=== PATIENT | female | born 1980 | race African-American/Black ===

== ENCOUNTER 2016-10-04 21:54 | Emergency (ER) | payer OTHER ==
[2016-10-04 22:05] VITALS: BP 146/78
[2016-10-04] MEDS ORDERED: DECADRON IM ONE (23:05)
--- NOTE | 2016-10-04 23:05 | PROVIDER DOCUMENTATION ---
[facility] General - General Chief Complaint: Flu Symptoms Stated Complaint: ZHU, FLU SX Time Seen by Provider: 10/04/16 22:51 Source: patient Allergies/Adverse Reactions: Patient Allergies Allergy/AdvReac Type Severity Reaction Status Date / Time No Known Allergies Allergy Verified 10/04/16 22:07 Home Medications: Home Medication List Medication Instructions Recorded Confirmed Last Taken Type Dexamethasone [Decadron] 4 mg PO BID #12 tablet 10/04/16 Unknown Rx - History of Present Illness-[facility] General Nature of Presenting Problem: 36 y/o AAF c/o muscle aches, fevers and fatigue over the past 24 hours. States fever up to 103 F before coming in. No pre-arrival treatment. Denies cough or sore throat. denies abdominal pain, n/v/d. Review of Systems - Adult - REVIEW OF SYSTEMS - ADULT Constitutional: reports: no symptoms reported. denies: chills, fever, fatique Eyes: reports: no symptoms reported. denies: blurred vision, double vision, eye pain Ears, Nose, Mouth & Throat: reports: no symptoms reported. denies: ear pain, nose pain, throat pain Cardiovascular: reports: no symptoms reported. denies: chest pain, irregular heart rate, palpitations Respiratory: reports: no symptoms reported. denies: cough, shortness of breath , wheezing Gastrointestinal: reports: no symptoms reported. denies: abdominal pain, diarrhea, nausea, vomiting Genitourinary: reports: no symptoms reported. denies: dysuria, discharge, frequency, incontinence Musculoskeletal: reports: no symptoms reported. denies: bone pain, back pain, muscle aches Integumentary: reports: no symptoms reported. denies: rash Neurological: reports: no symptoms reported. denies: ataxia, dizziness/vertigo , headache/migraines Psychiatric: reports: no symptoms reported Endocrine: reports: no symptoms reported Hematologic/Lymphatic: reports: no symptoms reported Allergic/Immunologic: reports: no symptoms reported All Other Systems: Reviewed and Negative Past History - Adult - PAST MEDICAL HISTORY-ADULT Review of Records: reports: Old Records Reviewed, Nursing Assessment Review, Medications Reviewed, Social history reviewed & non-contributory. Major Childhood Illnesses: reports: denies history Cardiovascular: reports: denies history Respiratory: reports: sleep apnea Gastrointestinal: reports: denies history Obstetrical/Gynecological: reports: denies history Genitourinary: reports: denies history Musculoskeletal: reports: denies history Neurological: reports: Seizures/Epilepsy Endocrine/Immune: reports: denies history Other Conditions: reports: denies history - PRIOR SURGERIES/PROCEDURES Surgical/Procedure History: reports: cholecystectomy, - PRIOR HOSPITALIZATIONS Prior Hospitalizations: reports: none - IMMUNIZATION STATUS Childhood Immunizations: See Nurse Assessment Flu Vaccine: See Nurse Assessment - FAMILY HISTORY Family History: reviewed, not pertinent Physical Exam- EENT - Physical Exam EENT Initial Vital Signs Reviewed: Yes General Appearance: appears well, alert, no apparent distress Eye Exam: bilateral eye: normal inspection, PERRL, EOMI Ear Exam: bilateral ear: auricle normal, canal normal, TM normal Nasal Exam: normal inspection Throat Exam: normal mouth inspection, other (PND) Neck: non-tender, full range of motion, supple, normal inspection. negative: lymphadenopathy Respiratory: chest non-tender, lungs clear, normal breath sounds, no pleuratic chest pain, no respiratory distress, no accessory muscle use. negative: respiratory distress, decreased breath sounds, accessory muscle use, crackles, rales, rhonchi, wheezing Cardiovascular: normal peripheral pulses, regular rate, rhythm Extremity: normal gait Integumentary: normal color, normal turgor, warm/dry Neurologic: grossly normal, no motor/sensory deficits Psych/Mental Status: normal mood/affect, normal thought content, normal thought process, oriented x 3 Progress - PLAN OF CARE/RESULTS Progress/Plan/Lab Results: Vital Signs Temp Pulse Resp BP Pulse Ox 10/04/16 22:02 98.9 F 116 H 18 146/78 100 No Known Allergies Allergy (Verified 10/04/16 22:07) Dexamethasone [Decadron] 4 mg PO BID #12 tablet 10/04/16 Orders Category Date Time Status Flu Swab [INFLUENZA SCREEN A/B] Stat Lab 10/04/16 22:06 Completed Dexamethasone [Decadron] Med 10/04/16 23:05 Discontinued 10 mg IM NOW ONE flu negative Departure - Departure Time of Disposition Order: 23:04 DIAGNOSIS: Viral syndrome Disposition: HOME 01 Certified Medical Emergency: Emergent Condition: Stable Additional Instructions: ED Follow Up Instructions: You have been treated by a care provider in the Emergency Department. These instructions are being provided to you so you can have an understanding of how to care for yourself upon discharge. Upon discharge from the Emergency Department, you are responsible for making arrangements for follow-up care by a physician of your choice. Take all prescribed medications as directed. Return to the Emergency Department immediately for any new or worsening symptoms. You may call the Physician Referral phone number at [phone] to obtain a list of Physicians who are taking new patients. Prescriptions: Dexamethasone [Decadron] 4 mg PO BID #12 tablet Referrals: Jazmine Dewey [Primary Care Provider] - Attestation - Physician/ MARTINEZ Attestation Patient care was provided by Advanced Practice Provider:: Yes Advanced Practice Provider:: Tamika Galindo Advanced Practice Provider documentation review:: The Mid-level provider documentation, treatment plan and medical decision making was reviewed by the physician who agrees with all treatment and medical decision making by the MLP.
== END 2016-10-04 23:23 | disposition home or self-care (01) ==
LOC: ED 21:54
DX: B34.9 Viral infection, unspecified (principal); R51 Headache; M79.1 Myalgia; R50.9 Fever, unspecified; R53.83 Other fatigue
CPT/HCPCS: 87804